=== PATIENT | female | born 1970 | race Two or more races ===

== ENCOUNTER 2024-11-16 17:58 | Emergency (ER) | payer MEDICARE, MEDICAID, SELFPAY ==
[2024-11-16 18:13] VITALS: BP 143/83; PULSE 107; RESP 20; TEMP 37.9; O2SAT 100; BMI 28.7
[2024-11-16] MEDS: DEXAMETHASONE SOD PHOS INJ 10 MG/ML VIAL PO (18:40)
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
== END 2024-11-16 18:55 | disposition home or self-care (01) ==
LOC: SERX 18:49
PROVIDERS: Emergency Provider Emergency Medicine; PCP Physician Assistant
DX: J10.1 Influenza due to other identified influenza virus with other respiratory manifestations (principal); J45.909 Unspecified asthma, uncomplicated; K58.9 Irritable bowel syndrome, unspecified; F17.210 Nicotine dependence, cigarettes, uncomplicated
CPT/HCPCS: 87400; 99283; J1100

== ENCOUNTER → 2025-06-06 | Outpatient (CLI) | payer MEDICARE, MEDICAID, SELFPAY ==
--- NOTE | 2025-06-06 10:00 | XR_ITS ---
Examination: Breast ultrasound, unilateral, right complete Date and time of exam: June 06, 2025 0948 hours INDICATIONS: Palpable lump right breast 12:00 position on clinical breast examination by physician 2 months ago, patient fell 2 months ago with injury to the breast, family history breast cancer, maternal Technique: Real-time cuellar scale ultrasonographic imaging performed right breast including all 4 quadrants as well as nipple retroareolar and axillary region. Findings: No cystic or solid mass IMPRESSION: BI-RADS Category 1: Negative study
--- NOTE | 2025-06-06 10:30 | XR_ITS ---
Examination: Screening digital mammography, bilateral Computer aided detection 3-D breast Tomosynthesis, bilateral Date and time of exam: June 06, 2025, 10:00 AM Compared to mammograms dating to August 18, 2016 Indication: Screening Technique: Nonmagnified MLO, CC views of the breasts to been obtained, reconstructed from 3-D Tomosynthesis images. R2 computer aided detection program utilized for evaluation of suspicious masses and/or abnormal calcifications. 3-D Tomosynthesis images obtained. Findings: The breasts are heterogeneously dense, which may obscure small masses Interval 16 mm focal asymmetry indistinct margins retroareolar region right breast Impression: BI-RADS Category 0: Incomplete: Need additional imaging evaluation Recommend follow-up spot tomographic views of 16mm focal asymmetry retroareolar region right breast as well as bilateral breast sonography to complete the workup.
== END | disposition home or self-care (01) ==
PROVIDERS: PCP Nurse Practitioner Primary Care; Referring Provider Nurse Practitioner Primary Care; Visit Provider Nurse Practitioner Primary Care
DX: Z12.31 Encounter for screening mammogram for malignant neoplasm of breast (principal); R92.8 Other abnormal and inconclusive findings on diagnostic imaging of breast; N64.89 Other specified disorders of breast
CPT/HCPCS: 76641; 77063; 77067

== ENCOUNTER → 2025-08-15 | Outpatient (CLI) | payer MEDICARE, MEDICAID, SELFPAY ==
--- NOTE | 2025-08-15 | XR_ITS ---
Examination: Diagnostic digital mammography, unilateral, right Computer aided detection 3-D breast Tomosynthesis, unilateral Date and time of exam: August 15, 2025, 1417 hours INDICATIONS: Mammogram 06/06/2025 16 mm focal asymmetry indistinct margins retroareolar region right breast Technique: Nonmagnified MLO, CC views of the right breast have been obtained, reconstructed from 3-D Tomosynthesis images. R2 computer aided detection program utilized for evaluation of suspicious masses and/or abnormal calcifications. 3-D Tomosynthesis images obtained. Findings: The breast is heterogeneously dense, which may obscure small masses Focal asymmetry remains on the spot compression MLO view retroareolar although no definite mass noted on the ultrasound study today Impression: BI-RADS category 3: Probably benign findings 1 additional 6-month right mammogram follow-up is needed
--- NOTE | 2025-08-15 13:55 | XR_ITS ---
Examination: Breast ultrasound complete, bilateral Date and time of exam: August 15, 2025, 1403 hours INDICATIONS: Mammogram 06/06/2000 2516 mm focal asymmetry indistinct margins retroareolar region right breast Technique: Real-time grayscale ultrasonographic imaging bilateral breasts, including all 4 quadrants as well as nipple retroareolar and axillary regions. Findings: Sonographic images right and left breast demonstrate no cystic or solid masses IMPRESSION: BI-RADS Category 1: Negative studies
== END | disposition home or self-care (01) ==
PROVIDERS: PCP Physician Assistant; Referring Provider Physician Assistant; Visit Provider Physician Assistant
DX: R92.333 Mammographic heterogeneous density, bilateral breasts (principal)
CPT/HCPCS: 76641; 77061; 77065; G0279